=== PATIENT | male | born 1955 | race Caucasian/White ===

== ENCOUNTER 2024-07-08 11:42 | Emergency (ER) | payer MEDICARE, BC, SELFPAY ==
[2024-07-08 11:45] VITALS: BP 191/117
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
[2024-07-08] MEDS: PERCOCET 5/325 1 TABLET PO (12:51)
== END 2024-07-08 13:04 | disposition home or self-care (01) ==
LOC: EMR 11:42
PROVIDERS: EMERGENCY PHYSICIAN Emergency Medicine; FAMILY PHYSICIAN Family Medicine
DX: S42.022A Displaced fracture of shaft of left clavicle, initial encounter for closed fracture (principal); V18.0XXA Pedal cycle driver injured in noncollision transport accident in nontraffic accident, initial encounter; Y93.55 Activity, bike riding; Z87.891 Personal history of nicotine dependence
CPT/HCPCS: 99283; 73000; 73030